=== PATIENT | female | born 1955 | race Caucasian/White ===

== ENCOUNTER 2017-03-25 16:22 | Emergency (ER) | payer BC ==
[2017-03-25 16:56] VITALS: BP 127/93
--- NOTE | 2017-03-25 17:13 | UC ---
Complaint Female HPI - HPI Summary HPI Summary: 61F presents with urgency, frequency for a week. has history of recurrent UTI so takes ppx macrobid when needed. has been taking it for a month without relief. h/o of prolapse had hyserectomy and bladder sling placed. - History Of Current Complaint Chief Complaint: UCGU Stated Complaint: URINARY COMPLAINT Time Seen by Provider: 03/25/17 16:47 - Allergies/Home Medications Allergies/Adverse Reactions: Allergies Allergy/AdvReac Type Severity Reaction Status Date / Time Levofloxacin [From Levaquin] Allergy Dizziness Verified 03/25/17 16:41 Oxybutynin Allergy Dizziness Verified 03/25/17 16:41 Sulfa Antibiotics Allergy Unknown Verified 03/25/17 16:41 Reaction Details Home Medications: Home Medications Esomeprazole(NF) [NEXium(NF)] 20 mg PO BID 03/25/17 [History Confirmed 03/25/17] Losartan TAB* [Cozaar TAB*] 25 mg PO DAILY 03/25/17 [History Confirmed 03/25/17] Nitrofurantoin Macrocrystals* [Macrodantin*] 50 mg PO DAILY 03/25/17 [History Confirmed 03/25/17] Simvastatin TAB(NF) [Zocor(NF)] 20 mg PO 1700 03/25/17 [History Confirmed ] PMH/Surg Hx/FS Hx/Imm Hx - Surgical History Surgical History: Yes Surgery Procedure, Year, and Place: bladder sling, prolapse repair x2, hysterectomy, tubal, colon resection - Social History Alcohol Use: Occasionally Substance Use Type: None Smoking Status (MU): Former Smoker When Did the Patient Quit Smoking/Using Tobacco: 20 years ago Physical Exam Vital Signs: Initial Vital Signs Temp 99.0 F 03/25/17 16:43 Pulse 87 03/25/17 16:43 Resp 16 03/25/17 16:43 BP 127/93 03/25/17 16:43 Pulse Ox 97 03/25/17 16:43 Complaint Female Dx - Differential Dx/Diagnosis Provider Diagnoses: uti Discharge - Discharge Plan Condition: Good Disposition: HOME Prescriptions: Amoxicillin/Clavulanate TAB* [Augmentin TAB 500 mg*] 500 mg PO BID #14 tab Patient Education Materials: Urinary Tract Infection in Women (ED) Referrals: Ange Puri MD [Primary Care Provider] - Additional Instructions: Take Augmentin twice a day for 7 days Drink plenty of water Follow up with urology Return to ED if develop sever flank pain, vomiting, fever, or any new or worsening symptoms
--- NOTE | 2017-03-25 18:38 | UC ---
Complaint Female HPI - HPI Summary HPI Summary: 61F presents with urgency, frequency for a week. She has history of recurrent UTI so takes ppx macrobid when needed. She has been taking it for a month without relief. h/o of prolapse had hyserectomy and bladder sling placed couple years ago. She dr case for urology and will see on 04/01. she denies any fever, dysuria, flank pain, nausea or vomiting. has history of chronic pain. She denies any history of kidney stones. She denies any vaginal discharge. - History Of Current Complaint Chief Complaint: UCGU Stated Complaint: URINARY COMPLAINT Time Seen by Provider: 03/25/17 16:47 Pain Intensity: 0 Pain Scale Used: 0-10 Numeric - Allergies/Home Medications Allergies/Adverse Reactions: Allergies Allergy/AdvReac Type Severity Reaction Status Date / Time Levofloxacin [From Levaquin] Allergy Dizziness Verified 03/25/17 16:41 Oxybutynin Allergy Dizziness Verified 03/25/17 16:41 Sulfa Antibiotics Allergy Unknown Verified 03/25/17 16:41 Reaction Details Home Medications: Home Medications Esomeprazole(NF) [NEXium(NF)] 20 mg PO BID 03/25/17 [History Confirmed 03/25/17] Losartan TAB* [Cozaar TAB*] 25 mg PO DAILY 03/25/17 [History Confirmed 03/25/17] Nitrofurantoin Macrocrystals* [Macrodantin*] 50 mg PO DAILY 03/25/17 [History Confirmed 03/25/17] Simvastatin TAB(NF) [Zocor(NF)] 20 mg PO 1700 03/25/17 [History Confirmed ] PMH/Surg Hx/FS Hx/Imm Hx Cardiovascular History: Hypertension GI/ History: Other Other GI/ History: IBS, UTI - Surgical History Surgical History: Yes Surgery Procedure, Year, and Place: bladder sling, prolapse repair x2, hysterectomy, tubal, colon resection - Family History Known Family History: Positive: Renal Disease - Social History Alcohol Use: Occasionally Substance Use Type: None Smoking Status (MU): Former Smoker When Did the Patient Quit Smoking/Using Tobacco: 20 years ago Review of Systems Constitutional: Negative Genitourinary: Frequency, Urgency All Other Systems Reviewed And Are Negative: Yes Physical Exam Triage Information Reviewed: Yes Appearance: Well-Appearing Vital Signs: Initial Vital Signs Temp 99.0 F 03/25/17 16:43 Pulse 87 03/25/17 16:43 Resp 16 03/25/17 16:43 BP 127/93 03/25/17 16:43 Pulse Ox 97 03/25/17 16:43 Vital Signs Reviewed: Yes Eyes: Positive: Conjunctiva Clear ENT: Positive: Normal ENT inspection, Pharynx normal, TMs normal Respiratory: Positive: Lungs clear, Normal breath sounds Cardiovascular: Positive: RRR Abdomen Description: Positive: Nontender, Soft. Negative: CVA Tenderness (R), CVA Tenderness (L) Bowel Sounds: Positive: Present Musculoskeletal Exam: Normal Neurological Exam: Normal Psychological Exam: Normal Skin Exam: Normal Complaint Female Dx - Course Course Of Treatment: 61F presents with urgency, frequency for a week. She has history of recurrent UTI so takes ppx macrobid when needed. She has been taking it for a month without relief. h/o of prolapse had hyserectomy and bladder sling placed couple years ago. She dr case for urology and will see on 04/01. she denies any fever, dysuria, flank pain, nausea or vomiting. has history of chronic pain. She denies any history of kidney stones. on exam nontender abdomen. neg CVA tenderness. u/a +2 leuko. will treat with augmentin due to allergies and currently on macrobid. will wait for final cultures for senstivity. medication reviewed. advised to follow up with primary about blood pressure. patient understands and agrees with plan. - Differential Dx/Diagnosis Differential Diagnosis/HQI/PQRI: Ureteral Stone, Urinary Tract Infection, Other - vaginitis Provider Diagnoses: uti Discharge - Discharge Plan Condition: Good Disposition: HOME Prescriptions: Amoxicillin/Clavulanate TAB* [Augmentin TAB 500 mg*] 500 mg PO BID #14 tab Patient Education Materials: Urinary Tract Infection in Women (ED) Referrals: Ange Puri MD [Primary Care Provider] - Additional Instructions: Take Augmentin twice a day for 7 days Drink plenty of water Follow up with urology Return to ED if develop sever flank pain, vomiting, fever, or any new or worsening symptoms
--- NOTE | 2017-03-28 07:26 | ED ---
Progress - Progress Note Progress Note: no change. cx pending. Course/Dx - Course Course Of Treatment: 61F presents with urgency, frequency for a week. She has history of recurrent UTI so takes ppx macrobid when needed. She has been taking it for a month without relief. h/o of prolapse had hyserectomy and bladder sling placed couple years ago. She dr case for urology and will see on 04/01. she denies any fever, dysuria, flank pain, nausea or vomiting. has history of chronic pain. She denies any history of kidney stones. on exam nontender abdomen. neg CVA tenderness. u/a +2 leuko. will treat with augmentin due to allergies and currently on macrobid. will wait for final cultures for senstivity. medication reviewed. advised to follow up with primary about blood pressure. patient understands and agrees with plan. - Diagnoses Provider Diagnoses: UTI (urinary tract infection)
== END 2017-03-25 17:23 | disposition home or self-care (01) ==
LOC: UCCORT 16:22
DX: N39.0 Urinary tract infection, site not specified (principal); B96.1 Klebsiella pneumoniae [K. pneumoniae] as the cause of diseases classified elsewhere; I10 Essential (primary) hypertension; K58.9 Irritable bowel syndrome, unspecified; Z90.710 Acquired absence of both cervix and uterus; Z88.2 Allergy status to sulfonamides; Z88.8 Allergy status to other drugs, medicaments and biological substances; Z87.891 Personal history of nicotine dependence
CPT/HCPCS: 81003; 87077; 87086; 87186; 99212; G0463

== ENCOUNTER 2017-07-16 10:35 | Emergency (ER) | payer BC ==
[2017-07-16 10:59] VITALS: BP 147/81
--- NOTE | 2017-07-16 11:16 | UC ---
Throat Pain/Nasal Abdias HPI - HPI Summary HPI Summary: 1. increased sinus pressure and cough 2. urinary burning and pressure for the past 1.5 days. did start his 50 mg microdantin last night - History of Current Complaint Chief Complaint: UCGU Stated Complaint: COUGH,URINARY Time Seen by Provider: 07/16/17 11:00 Hx Obtained From: Patient ?: No Onset/Duration: Sudden Onset, Lasting Days Severity: Moderate Associated Signs & Symptoms: Positive: Wheezing, Sinus Discomfort, Nasal Discharge - Allergies/Home Medications Allergies/Adverse Reactions: Allergies Allergy/AdvReac Type Severity Reaction Status Date / Time Levofloxacin [From Levaquin] Allergy Dizziness Verified 07/16/17 10:59 Oxybutynin Allergy Dizziness Verified 07/16/17 10:59 Sulfa Antibiotics Allergy Unknown Verified 07/16/17 10:59 Reaction Details PMH/Surg Hx/FS Hx/Imm Hx Previously Healthy: Yes - Surgical History Surgical History: Yes Surgery Procedure, Year, and Place: bladder sling, prolapse repair x2, hysterectomy, tubal, colon resection - Family History Known Family History: Positive: Renal Disease - Social History Alcohol Use: Occasionally Substance Use Type: None Smoking Status (MU): Former Smoker When Did the Patient Quit Smoking/Using Tobacco: 20 years ago Review of Systems Constitutional: Negative Skin: Negative Eyes: Negative ENT: Sinus Congestion, Sinus Pain/Tenderness Respiratory: Cough Cardiovascular: Negative Gastrointestinal: Negative Genitourinary: Dysuria, Frequency, Urgency Motor: Negative Neurovascular: Negative Musculoskeletal: Negative Neurological: Negative Psychological: Negative Is Patient Immunocompromised?: No All Other Systems Reviewed And Are Negative: Yes Physical Exam Triage Information Reviewed: Yes Appearance: Well-Nourished, Ill-Appearing, Pain Distress Vital Signs: Initial Vital Signs Temp 98.4 F 07/16/17 10:55 Pulse 73 07/16/17 10:55 Resp 16 07/16/17 10:55 BP 147/81 07/16/17 10:55 Pulse Ox 97 07/16/17 10:55 Vital Signs Reviewed: Yes Eye Exam: Normal ENT: Positive: Pharyngeal erythema, Nasal congestion, Nasal drainage, Sinus tenderness Dental Exam: Normal Neck exam: Normal Respiratory Exam: Normal Respiratory: Positive: Chest non-tender, No respiratory distress, No accessory muscle use, Wheezing, Inspiration Cardiovascular Exam: Normal Cardiovascular: Positive: RRR, No Murmur, Pulses Normal Abdominal Exam: Normal Abdomen Description: Positive: Nontender, No Organomegaly, Soft Bowel Sounds: Positive: Present Musculoskeletal Exam: Normal Neurological Exam: Normal Psychological Exam: Normal Skin Exam: Normal Throat Pain/Nasal Course/Dx - Course Course Of Treatment: hx obtained, exam preformed ,meds reviewed, treated for UTI and sinus congestion education on relief of symptoms - Differential Dx/Diagnosis Differential Diagnosis/HQI/PQRI: Otitis Media, Pharyngitis, Sinusitis, URI Provider Diagnoses: UTI. sinus congestion Discharge - Discharge Plan Condition: Stable Disposition: HOME Prescriptions: Cephalexin CAP* [Keflex CAP*] 500 mg PO BID #14 cap Patient Education Materials: Urinary Tract Infection in Women (ED) Referrals: Ange Puri MD [Primary Care Provider] - Additional Instructions: 1. Increase fluid intake and get plenty of rest 2. Take the medication as prescribed.
== END 2017-07-16 11:19 | disposition home or self-care (01) ==
LOC: UCCORT 10:35
DX: N39.0 Urinary tract infection, site not specified (principal); J34.89 Other specified disorders of nose and nasal sinuses; R05 Cough; R06.2 Wheezing; Z88.1 Allergy status to other antibiotic agents; Z88.2 Allergy status to sulfonamides; Z88.8 Allergy status to other drugs, medicaments and biological substances; Z87.891 Personal history of nicotine dependence
CPT/HCPCS: 81003; 87086; 99212; G0463

== ENCOUNTER 2018-07-22 10:56 | Emergency (ER) | payer BC ==
[2018-07-22 11:23] VITALS: BP 136/79
--- NOTE | 2018-07-22 11:50 | UC ---
Minor Trauma HPI - HPI Summary HPI Summary: Per window/distribution clerk "Fell on ice . Landed on right side. Didn't hit head or lose conciousness. Now having tenderness over right rib area. Starting to have muscle aches under right arm. " -here w/ . -no SOB unless she takes a deep breath -fell with rt arm outstretched and "hit hard" on her ribs. - History of Current Complaint Chief Complaint: UCGeneralIllness Stated Complaint: S/P FALL 07/20 RT SIDE RIB PAIN Time Seen by Provider: 07/22/18 11:29 Pain Intensity: 2 - Allergies/Home Medications Allergies/Adverse Reactions: Allergies Allergy/AdvReac Type Severity Reaction Status Date / Time levofloxacin [From Levaquin] Allergy Dizziness Verified 07/22/18 11:25 oxybutynin Allergy Dizziness Verified 07/22/18 11:25 Sulfa (Sulfonamide Allergy Unknown Verified 07/22/18 11:25 Antibiotics) Reaction Details Home Medications: Home Medications Montelukast Sodium TAB* [Singulair 10 MG TAB*] 10 mg PO DAILY 07/22/18 [History Confirmed 07/22/18] PMH/Surg Hx/FS Hx/Imm Hx Cardiovascular History: Hypertension - Surgical History Surgical History: Yes Surgery Procedure, Year, and Place: bladder sling, prolapse repair x2, hysterectomy, tubal, colon resection - Family History Known Family History: Positive: Renal Disease - Social History Alcohol Use: Occasionally Substance Use Type: None Smoking Status (MU): Former Smoker When Did the Patient Quit Smoking/Using Tobacco: 20 years ago - Immunization History Vaccination Up to Date: Yes Review of Systems All Other Systems Reviewed And Are Negative: Yes Constitutional: Positive: Negative Skin: Positive: Negative Eyes: Positive: Negative ENT: Positive: Negative Respiratory: Positive: Negative Cardiovascular: Positive: Negative Gastrointestinal: Positive: Negative Genitourinary: Positive: Negative Motor: Positive: Negative Neurovascular: Positive: Negative Musculoskeletal: Positive: Arthralgia Neurological: Positive: Negative Psychological: Positive: Negative Is Patient Immunocompromised?: No Physical Exam Triage Information Reviewed: Yes Appearance: Well-Appearing, No Pain Distress, Well-Nourished - moves slowly when standing when needing support to push off Vital Signs: Initial Vital Signs Temp 99.5 F 07/22/18 11:19 Pulse 93 07/22/18 11:19 Resp 20 07/22/18 11:19 BP 136/79 07/22/18 11:19 Pulse Ox 97 07/22/18 11:19 Vital Signs Reviewed: Yes Eye Exam: Normal ENT Exam: Normal ENT: Positive: Uvula midline Neck exam: Normal Neck: Positive: Supple, Nontender, No Lymphadenopathy, Other: - trachea midline Respiratory Exam: Normal Respiratory: Positive: Lungs clear, Normal breath sounds, No respiratory distress, No accessory muscle use, Other: - rt axillary line mid rib with point tenderness, no bruising.. Negative: Crackles, Rhonchi, Stridor, Wheezing Cardiovascular Exam: Normal Cardiovascular: Positive: RRR, No Murmur, Pulses Normal Abdominal Exam: Normal Abdomen Description: Positive: Soft Musculoskeletal: Positive: Other: - see above Neurological Exam: Normal Psychological Exam: Normal Skin Exam: Normal Minor Trauma Course/Dx - Course Course Of Treatment: Rt rib xrays - no frx - Differential Dx/Diagnosis Differential Diagnosis/HQI/PQRI: Contusion(s), Fracture, Sprain, Strain Provider Diagnosis: Contusion Discharge - Sign-Out/Discharge Documenting (check all that apply): Patient Departure All imaging exams completed and their final reports reviewed: Yes - Discharge Plan Condition: Stable Disposition: HOME Patient Education Materials: Contusion in Adults (ED) Referrals: Ange Puri MD [Primary Care Provider] - Additional Instructions: There is no fracture seen on your xray. If the pain does not improve in a reasonable amount of time, more imaging studies should be considered. Rest and ice will be helpful. - Billing Disposition and Condition Condition: STABLE Disposition: Home
== END 2018-07-22 12:48 | disposition home or self-care (01) ==
LOC: UCCORT 10:56
DX: T14.8XXA Other injury of unspecified body region, initial encounter (principal); M79.18 Myalgia, other site; I10 Essential (primary) hypertension; R29.898 Other symptoms and signs involving the musculoskeletal system; Z88.8 Allergy status to other drugs, medicaments and biological substances; Z88.2 Allergy status to sulfonamides; Z87.891 Personal history of nicotine dependence; W00.0XXA Fall on same level due to ice and snow, initial encounter; Y92.9 Unspecified place or not applicable
CPT/HCPCS: 99211; G0463

== ENCOUNTER 2018-10-18 18:28 | Emergency (ER) | payer BC ==
[2018-10-18 20:15] VITALS: BP 148/84
--- NOTE | 2018-10-18 20:23 | UC ---
Throat Pain/Nasal Abdias HPI - HPI Summary HPI Summary: Pt presents with c/o ST, cough, fever, chills, nasal congestion, sinus pressure , pain, PND, fatigue, malaise X 2 days. - History of Current Complaint Stated Complaint: HEADACHE/SORE THROAT/COUGH/VOMITING Time Seen by Provider: 10/18/18 20:10 Hx Obtained From: Patient ?: No Onset/Duration: Sudden Onset, Lasting Days, Still Present, Worse Since - onset Severity: Moderate Pain Intensity: 10 Cough: Nonproductive Associated Signs & Symptoms: Positive: Dysphagia, Sinus Discomfort, Fever, Other - PND Related History: Seasonal Allergies - Epiglottits Risk Factors Epiglottis Risk Factors: Negative - Allergies/Home Medications Allergies/Adverse Reactions: Allergies Allergy/AdvReac Type Severity Reaction Status Date / Time levofloxacin [From Levaquin] Allergy Dizziness Verified 10/18/18 20:10 oxybutynin Allergy Dizziness Verified 10/18/18 20:10 Sulfa (Sulfonamide Allergy Unknown Verified 10/18/18 20:10 Antibiotics) Reaction Details Home Medications: Home Medications Lisinopril TAB* [Prinivil TAB 10 MG*] 20 mg DAILY 10/18/18 [History Confirmed ] PMH/Surg Hx/FS Hx/Imm Hx Previously Healthy: Yes Cardiovascular History: Hypertension - Surgical History Surgical History: Yes Surgery Procedure, Year, and Place: bladder sling, prolapse repair x2, hysterectomy, tubal, colon resection - Family History Known Family History: Positive: Renal Disease - Social History Occupation: Retired Lives: With Family Alcohol Use: Occasionally Substance Use Type: None Smoking Status (MU): Former Smoker Have You Smoked in the Last Year: No When Did the Patient Quit Smoking/Using Tobacco: 20 years ago - Immunization History Vaccination Up to Date: Yes Review of Systems All Other Systems Reviewed And Are Negative: Yes Constitutional: Positive: Fever, Chills, Fatigue Skin: Positive: Negative Eyes: Positive: Negative ENT: Positive: Sore Throat, Sinus Congestion, Sinus Pain/Tenderness Respiratory: Positive: Cough Cardiovascular: Positive: Negative Gastrointestinal: Positive: Negative Genitourinary: Positive: Negative Motor: Positive: Negative Neurovascular: Positive: Negative Musculoskeletal: Positive: Myalgia Neurological: Positive: Headache Psychological: Positive: Negative Is Patient Immunocompromised?: No Physical Exam Triage Information Reviewed: Yes Appearance: Ill-Appearing Vital Signs: Initial Vital Signs Temp 99.8 F 10/18/18 20:12 Pulse 91 10/18/18 20:12 Resp 16 10/18/18 20:12 BP 148/84 10/18/18 20:12 Pulse Ox 97 10/18/18 20:12 Vital Signs Reviewed: Yes Eye Exam: Normal ENT: Positive: Nasal congestion, Nasal drainage, Sinus tenderness Dental Exam: Normal Neck exam: Normal Respiratory: Positive: Wheezing Cardiovascular Exam: Normal Musculoskeletal Exam: Normal Neurological Exam: Normal Psychological Exam: Normal Skin Exam: Normal Throat Pain/Nasal Course/Dx - Differential Dx/Diagnosis Differential Diagnosis/HQI/PQRI: Influenza, Sinusitis, URI Provider Diagnosis: Sinusitis Discharge - Sign-Out/Discharge Documenting (check all that apply): Patient Departure All imaging exams completed and their final reports reviewed: No Studies - Discharge Plan Condition: Stable Disposition: HOME Prescriptions: Amoxicillin PO (*) [Amoxicillin 875 MG (*)] 875 mg PO Q12H #20 tab Patient Education Materials: Sinusitis (ED) Referrals: Ange Puri MD [Primary Care Provider] - If Needed Additional Instructions: To help relieve your symptoms, please use: Coricidin Drug or the generic equivalent. If your symptoms do not improve or they worsen lease seek care at the closest emergency room. - Billing Disposition and Condition Condition: STABLE Disposition: Home
== END 2018-10-18 20:30 | disposition home or self-care (01) ==
LOC: UCCORT 18:28
DX: J32.9 Chronic sinusitis, unspecified (principal); J02.9 Acute pharyngitis, unspecified; I10 Essential (primary) hypertension; Z87.891 Personal history of nicotine dependence; Z88.1 Allergy status to other antibiotic agents; Z88.2 Allergy status to sulfonamides; Z88.8 Allergy status to other drugs, medicaments and biological substances
CPT/HCPCS: 99212; G0463

== ENCOUNTER 2019-04-06 18:19 | Emergency (ER) | payer BC ==
[2019-04-06 18:33] VITALS: BP 121/83
--- NOTE | 2019-04-06 18:57 | UC ---
Throat Pain/Nasal Abdias HPI - HPI Summary HPI Summary: 63-year-old female who has had cold symptoms over the past week and now has sinus pressure and congestion with postnasal drainage. - History of Current Complaint Chief Complaint: UCGeneralIllness Stated Complaint: COUGH,WOODS,VOMITTING,CONGESTION Time Seen by Provider: 04/06/19 18:52 Hx Obtained From: Patient ?: No Onset/Duration: Gradual Onset Severity: Mild Pain Intensity: 6 Cough: Nonproductive - Nonproductive harsh cough. Associated Signs & Symptoms: Positive: Sinus Discomfort, Nasal Discharge, Vomiting - Patient vomited 3 times with coughing. - Allergies/Home Medications Allergies/Adverse Reactions: Allergies Allergy/AdvReac Type Severity Reaction Status Date / Time levofloxacin [From LevGumroad] Allergy Dizziness Verified 04/06/19 18:33 oxybutynin Allergy Dizziness Verified 04/06/19 18:33 Sulfa (Sulfonamide Allergy Unknown Verified 04/06/19 18:33 Antibiotics) Reaction Details Home Medications: Home Medications Acetaminophen/Diphenhydramine [Tylenol Pm Ex-Strength Caplet] 1 each PO DAILY [History Confirmed 04/06/19] Loratadine 10 mg PO DAILY 04/06/19 [History Confirmed 04/06/19] Montelukast Sodium TAB* [Singulair TAB*] 10 mg PO DAILY 04/06/19 [History Confirmed 04/06/19] PMH/Surg Hx/FS Hx/Imm Hx Previously Healthy: Yes Endocrine History: Dyslipidemia Cardiovascular History: Hypertension - Surgical History Surgical History: Yes Surgery Procedure, Year, and Place: bladder sling, prolapse repair x2, hysterectomy, tubal, colon resection - Family History Known Family History: Positive: Renal Disease - Social History Lives: With Family Alcohol Use: Rare Substance Use Type: None Smoking Status (MU): Former Smoker Have You Smoked in the Last Year: No When Did the Patient Quit Smoking/Using Tobacco: 20 years ago - Immunization History Vaccination Up to Date: Yes Review of Systems All Other Systems Reviewed And Are Negative: Yes ENT: Positive: Nasal Discharge, Sinus Congestion, Sinus Pain/Tenderness Respiratory: Positive: Cough - Harsh Nonproductive cough. Gastrointestinal: Positive: Vomiting - Patient vomited 3 times after coughing. Neurological: Positive: Headache - Mild frontal headache mostly with coughing. Is Patient Immunocompromised?: No Physical Exam Triage Information Reviewed: Yes Appearance: Well-Appearing, No Pain Distress, Well-Nourished Vital Signs: Initial Vital Signs Temp 98.5 F 04/06/19 18:28 Pulse 106 04/06/19 18:28 Resp 18 04/06/19 18:28 BP 121/83 04/06/19 18:28 Pulse Ox 97 04/06/19 18:28 Vital Signs Reviewed: Yes Eyes: Positive: Conjunctiva Clear ENT: Positive: Pharynx normal - Yellow postnasal drainage., Nasal congestion, Nasal drainage - Yellow nasal coryza., TMs normal, Uvula midline Neck: Positive: Supple, Nontender, No Lymphadenopathy Respiratory: Positive: Lungs clear, Normal breath sounds, No respiratory distress, No accessory muscle use - Harsh nonproductive cough. Cardiovascular: Positive: RRR, No Murmur, Pulses Normal, Brisk Capillary Refill Musculoskeletal Exam: Normal Neurological Exam: Normal Psychological Exam: Normal Skin Exam: Normal Throat Pain/Nasal Course/Dx - Course Course Of Treatment: Patient is comfortable here. I'm going to treat her with doxycycline 100 mg by mouth twice a day 10 days for sinus infection. She is to follow-up with a primary care provider next week if no improvement. - Differential Dx/Diagnosis Provider Diagnosis: Sinusitis Discharge ED - Sign-Out/Discharge Documenting (check all that apply): Patient Departure All imaging exams completed and their final reports reviewed: No Studies - Discharge Plan Condition: Good Disposition: HOME Prescriptions: DOXYcycline CAP(*) [DOXYcycline 100MG CAP(*)] 100 mg PO BID 10 Days #20 cap Patient Education Materials: Sinusitis (ED) Referrals: Ange Puri MD [Primary Care Provider] - Additional Instructions: Increase fluids. No dairy products, antacids, multivitamins or multi vitamin supplements 2 hours before you take the doxycycline and 2 hours after you take it however you definitely want to take it with food. Definite follow-up with your primary care provider if no improvement by Tuesday or Tuesday. - Billing Disposition and Condition Condition: GOOD Disposition: Home
== END 2019-04-06 19:03 | disposition home or self-care (01) ==
LOC: UCCORT 18:19
DX: J32.9 Chronic sinusitis, unspecified (principal); R05 Cough; I10 Essential (primary) hypertension; R11.10 Vomiting, unspecified; Z88.8 Allergy status to other drugs, medicaments and biological substances; Z88.2 Allergy status to sulfonamides; Z87.891 Personal history of nicotine dependence
CPT/HCPCS: 99212; G0463